=== PATIENT | male | born 1955 | race Caucasian/White ===

== ENCOUNTER 2020-06-30 11:49 | Outpatient (CLI) | payer BC, SELFPAY | END 2020-06-30 11:50 | disposition home or self-care (01) | LOC: ANHCOVIDVC 11:49 | DX: Z23 Encounter for immunization (principal) | CPT/HCPCS: 0001A; 91300 ==

== ENCOUNTER 2020-07-21 11:33 | Outpatient (CLI) | payer BC, SELFPAY | END 2020-07-21 11:34 | disposition home or self-care (01) | LOC: ANHCOVIDVC 11:33 | DX: Z23 Encounter for immunization (principal) | CPT/HCPCS: 0002A; 91300 ==